=== PATIENT | male | born 2005 | race Caucasian/White ===

== ENCOUNTER 2024-10-27 16:15 | Emergency (ER) | payer OTHER, SELFPAY ==
--- OUTSIDE RECORDS SUMMARY | 2024-10-27 16:18 | XMS_ITS | Patient Health Record ---
Author Organization [facility] Address [address] [address] Care Team Providers Care Esthetician/Owner Name Role Phone aaaNone, None Primary Care Provider Unavailabl e ALLERGIES No Known Allergies REASON FOR REFERRAL No Information SOCIAL HISTORY Sex Assigned At : Social History Observation Description Sex Assigned At Unknown PLAN OF TREATMENT No Information Insurance Providers Payer Name Payer Address Payer Phone Subscriber Number Group Number Insured Name Patient Relationship to Insured Coverage Start Date Coverage End Date [place] [address] [address] [place], [place] [id number] Hieu Escobar Self - patient is the insured 2
[2024-10-27 16:28] VITALS: BP 124/74; PULSE 92; RESP 20; TEMP 37.6; O2SAT 98
--- NOTE | 2024-10-27 16:50 | ED.GENADULT ---
HPI - General Adult General Date Seen: 10/27/24 Chief complaint: Chest Pain Stated complaint: chest pain Time Seen by Provider: 10/27/24 16:30 History of Present Illness HPI narrative: Patient is a 19-year-old who is here for evaluation of some right-sided chest pain which was there when he woke up this morning. It hurts to take a deep breath in he maybe feels a little bit short of breath. He notes that he has a prior history of pneumothorax, and thinks this maybe feels similar. He notes that he was sledding yesterday, no real specific injuries although he had a few standard falls. Denies any other noted at pain or injuries. Denies fever, cough, leg pain or swelling. Pain is worsened with movement and deep breath. It was at its worst when he woke up this morning and has progressively improved throughout the day but has not completely gone away. Related Data Allergies Allergy/AdvReac Type Severity Reaction Status Date / Time No Known Drug Allergies Allergy Verified 10/06/23 14:44 Exam Const: Vital Signs, click to edit/add: Vital Signs - 24 hr 10/27/24 16:28 Temperature 99.6 F Pulse Rate [Pulse Oximeter] 92 Respiratory Rate 20 Blood Pressure [Ri ght Upper Arm] 124/74 Pulse Oximetry 98 Oxygen Delivery Me thod Room Air Course Course ED Course: I ordered a chest x-ray which by my review was normal, I did not see a pneumothorax. I reviewed the radiology report as well which was read as negative. His exam is reassuring, O2 sats are normal and lungs are clear. I do not think this pain is cardiac, he is PERC negative. I suspect this is chest wall related to sledding yesterday. Discussed with him that for now and recommend conservative treatment with nonsteroidals, ice, and give this a few days. If he feels that pain is worsening, if he has new symptoms such as significant shortness of breath, high fevers, vomiting etcetera, return to the ER at any time. He is comfortable with our plan. Vital Signs Vital signs: Initial Vital Signs Temperature 99.6 F 10/27/24 16:28 Temperature Source Temporal Artery Scan 10/27/24 16:28 Pulse Rate 92 10/27/24 16:28 Respiratory Rate 20 10/27/24 16:28 Blood Pressure 124/74 10/27/24 16:28 Blood Pressure Mean 90 10/27/24 16:28 Pulse Oximetry 98 10/27/24 16:28 Oxygen Delivery Method Room Air 10/27/24 16:28 Vital Signs Temperature 99.6 F 10/27/24 16:28 Pulse Rate 92 10/27/24 16:28 Respiratory Rate 20 10/27/24 16:28 Blood Pressure 124/74 10/27/24 16:28 Pulse Oximetry 98 10/27/24 16:28 Oxygen Delivery Method Room Air 10/27/24 16:28 Temperature 99.6 F 10/27/24 16:28 Pulse Rate 92 10/27/24 16:28 Respiratory Rate 20 10/27/24 16:28 Blood Pressure 124/74 10/27/24 16:28 Pulse Oximetry 98 10/27/24 16:28 Oxygen Delivery Method Room Air 10/27/24 16:28 Medical Decision Making Imaging Data Chest x-ray: Attestation: I have reviewed the pertinent imaging results. Radiologist's impression: Patient: Hieu Waters MR#: [id number] : 2005 Acct:[id number] Loc: ED Service Date: 10/27/[address]: Ordering Physician: Sarah Duarte M.D. Date of Service: 10/27/24 Procedure(s): XR chest 2V Accession Number(s): [id number] cc: Sarah Duarte M.D.; Provider,Not a Local~ For Patients: As a result of the Cures Act, medical imaging exams and procedure reports are released immediately into your electronic medical record. You may view this report before your referring provider. If you have questions, please contact your health care provider. INDICATION: : Chest pain with history of pneumothorax COMPARISON: None TECHNIQUE: Two view(s) of the chest FINDINGS: The cardiomediastinal silhouette and pulmonary vasculature are unremarkable. There is no focal airspace consolidation, pleural effusion, or pneumothorax. No displaced fractures. IMPRESSION: No acute cardiopulmonary process. Dictated by Jah Dave MD @ 10/27/2024 5:30:05 PM Discharge Plan Discharge Clinical Impression: Chest wall pain Patient Disposition: Home, Self-Care Instructions: Chest Wall Pain (ED) Additional Instructions: Your chest x-ray today is normal, no evidence of pneumothorax, pneumonia or other acute findings. Your pain is likely related to muscle/chest wall injury, which should improve over the next few days with conservative therapy including ibuprofen, ice, and time. If you find that your pain is persistent or if it worsens at any time, if you have new symptoms such as significant shortness of breath, high fevers, vomiting etcetera, return to the ER at any time. Follow Up/Referrals: Provider,Not a Local [Primary Care Provider] - Stand Alone Forms: Sensdata Info Instructions
== END 2024-10-27 17:52 | disposition home or self-care (01) ==
PROVIDERS: Emergency Provider Emergency Medicine
DX: R07.89 Other chest pain (principal)
CPT/HCPCS: 71046; 99283; 99284